=== PATIENT | male | born 2000 | race Caucasian/White ===

== ENCOUNTER 2018-01-05 16:36 | Inpatient (IN) | payer OTHER ==
[2018-01-05] MEDS ORDERED: IMMUNE GLOBULIN (HUMAN-IGG) 1 GM/10 ML VIAL IV ONE (16:58)
[2018-01-05] MEDS ORDERED: IMMUNE GLOBULIN (HUMAN-IGG) 20 GM in EMPTY BAG 1 BAG IV ONE (18:00)
[2018-01-05 18:49] VITALS: BMI 18.8
[2018-01-05] MEDS ORDERED: IMMUNE GLOBULIN (HUMAN-IGG) 10 GM in EMPTY BAG 1 BAG IV ONE (19:00)
--- NOTE | 2018-01-05 21:01 | P.HPIM ---
History of Present Illness H&P Date: 01/05/18 The patient is a 17-year-old young white male, in good health, recently seen in consult on 12/21/17. The patient had noted development of some blisters inside his mouth, as well as small areas of bruising type discoloration on his upper extremities and distal lower lower extremities. due to persistence and some progression of his symptoms, he came into the emergency room. Labs revealed the patient count of 2000. Other aspects of his CBC and chem panel were normal. It was therefore decided to admit the patient. The patient denied any prior history of blood related problems. There was no recent history of any signs or symptoms suggestive of infection. No history of any new medications or joint swelling. he was treated with IV steroids, IVIG and platet transfusion. Platelet counts increased to 57,00 And he was discharged. He was continued on prednisone in the outpatient setting. However counts were noted to have dropped to 13,000, and then 4000 on the day of this admission, when seen in the office. The patient was continuing on 60 mg of prednisone daily. It was therefore decided to admit him for platelet transfusions and IVIG. He has noted minor bruising on his upper extremities, as well as 2-3 small blood spots on his soft palate. Otherwise no significant bleeding has been noted. Review of Systems Constitutional: Denies chills, Denies fever Eyes: denies blurred vision, denies pain Ears: deny: decreased hearing, ear discharge, earache, tinnitus Ears, nose, mouth and throat: Denies headache, Denies sore throat Cardiovascular: Denies chest pain, Denies shortness of breath Respiratory: Denies cough Gastrointestinal: Denies abdominal pain, Denies diarrhea, Denies nausea, Denies vomiting Musculoskeletal: Denies myalgias Integumentary: Reports as per HPI (minimal purpura distal UE) Neurological: Denies numbness, Denies weakness Psychiatric: Denies anxiety, Denies depression Endocrine: Denies fatigue, Denies weight change Hematologic/Lymphatic: Reports as per HPI Past Medical History Past Medical History: No Reported History Additional Past Medical History / Comment(s): broken arm at age 1 yrs from jumping off of the bed History of Any Multi-Drug Resistant Organisms: None Reported Past Surgical History: No Surgical Hx Reported Additional Past Surgical History / Comment(s): [place] teeth extraction Past Anesthesia/Blood Transfusion Reactions: No Reported Reaction Smoking Status: Never smoker - Past Family History Mother Family Medical History: No Reported History Additional Family Medical History / Comment(s): Mother is healthy Father Family Medical History: No Reported History Additional Family Medical History / Comment(s): Father is healthy Medications and Allergies Home Medications Medication Instructions Recorded Confirmed Type predniSONE 60 mg PO DAILY 01/05/18 01/05/18 History Allergies Allergy/AdvReac Type Severity Reaction Status Date / Time No Known Allergies Allergy Verified 01/05/18 19:13 Physical Exam Vitals: Vital Signs Temp Pulse Resp BP Pulse Ox 01/05/18 17:29 98.1 F 88 15 133/85 99 Intake and Output 01/05/18 01/05/18 01/05/18 06:59 14:59 22:59 Other: Weight 66.5 kg Patient Weight 01/06/18 06:59 Weight 66.5 kg - Constitutional General appearance: no acute distress - EENT 2-3 small purpura soft palate Eyes: EOMI, PERRLA ENT: hearing grossly normal - Neck Neck: no lymphadenopathy Thyroid: bilateral: normal size - Respiratory Respiratory: bilateral: CTA - Cardiovascular Rhythm: regular Heart sounds: normal: S1, S2 - Gastrointestinal General gastrointestinal: no organomegaly, soft, no tenderness - Integumentary minimal purpura distal UE - Neurologic Neurologic: CNII-XII intact - Musculoskeletal Musculoskeletal: generalized weakness, strength equal bilaterally - Psychiatric Psychiatric: A&O x's 3, appropriate affect Results Labs: Labs done in office show normal Hgb and WBC, with plt of 4000 Thrombosis Risk Factor Assmnt - DVT/VTE Prophylaxis DVT/VTE Prophylaxis: Contraindicated - See note (plt count < [id number]) Assessment and Plan (1) Thrombocytopenia Narrative/Plan: The pt has a new diagnosis of ITP. He appears to be steroid refractory, with plt dropping to 4000, despite 60 mg/d of Prednisone. He is being admitted for platelet transfusion. Continue Prednisone. He will recieve additional IVIg Options for 2nd line treatment were discussed in detail, including splenectomy , Rituxan and TPA agonists. It has been decided to start Rituximab as an outpatient GINGER. Check CBC in Am. Can likely discharge once plt are > 10 Current Visit: No Status: Acute Code(s): D69.6 - THROMBOCYTOPENIA, UNSPECIFIED SNOMED Code(s): 594907478
[2018-01-06 07:17] LABS: Basophils # (A) 0.1 k/uL (0-0.2); Basophils % (A) 0 %; Eosinophils # (A) 0.1 k/uL (0-0.7); Eosinophils % (A) 1 %; HCT 44.9 % (39.0-53.0); HGB 14.5 gm/dL (13.0-17.5); Lymphocytes # (A) 1.6 k/uL (1.0-4.8); Lymphocytes % (A) 14 %; MCH 30.6 pg (25.0-35.0); MCHC 32.4 g/dL (31.0-37.0); MCV 94.4 fL (80.0-100.0); Monocytes # (A) 0.9 k/uL (0-1.0); Monocytes % (A) 7 %; Neutrophils # (A) 8.9 k/uL (1.3-7.7); Neutrophils % (A) 75 %; RBC 4.76 m/uL (4.30-5.90); RDW 12.3 % (11.5-15.5); WBC 11.8 k/uL (4.0-11.0)
[2018-01-06 08:36] LABS: Platelet Count 9 k/uL (150-450)
[2018-01-06] MEDS ORDERED: IMMUNE GLOBULIN 30 GM/300 ML IV ONE (11:13)
[2018-01-06] MEDS ORDERED: predniSONE 20 MG TAB PO SCH (11:15)
[2018-01-06] MEDS ORDERED: IMMUNE GLOBULIN (HUMAN-IGG) 10 GM in EMPTY BAG 1 BAG IV ONE (11:30)
[2018-01-06] MEDS ORDERED: IMMUNE GLOBULIN (HUMAN-IGG) 20 GM in EMPTY BAG 1 BAG IV ONE (11:30)
--- NOTE | 2018-01-06 16:27 | P.DS ---
Providers Date of admission: 01/05/18 16:54 Expected date of discharge: 01/06/18 Attending physician: Dean Yoon Primary care physician: Stated None - Discharge Diagnosis(es) (1) Thrombocytopenia Current Visit: No Status: Acute (2) Acute ITP Current Visit: Yes Status: Acute Hospital Course: The patient is a 17-year-old young white male, in good health, recently seen in consult on 12/21/17. The patient had noted development of some blisters inside his mouth, as well as small areas of bruising type discoloration on his upper extremities and distal lower lower extremities. due to persistence and some progression of his symptoms, he came into the emergency room. Labs revealed the patient count of 2000. Other aspects of his CBC and chem panel were normal. It was therefore decided to admit the patient. The patient denied any prior history of blood related problems. There was no recent history of any signs or symptoms suggestive of infection. No history of any new medications or joint swelling. he was treated with IV steroids, IVIG and platet transfusion. Platelet counts increased to 57,00 And he was discharged. Workup for underlying causes , including B12, folate, protein electrophoresis studies, HIV and rheumatoid factor was negative, except for a positive ALHAJI at 1:160 with a speckled pattern. This was felt to be nonspecific in the absence of any other symptoms. He was continued on prednisone in the outpatient setting. However counts were noted to have dropped to 13,000, and then 4000 on the day of this admission , when seen in the office. The patient was continuing on 60 mg of prednisone daily. It was therefore decided to admit him for platelet transfusions and IVIG. He has noted minor bruising on his upper extremities, as well as 2-3 small blood spots on his soft palate. Otherwise no significant bleeding has been noted. He was therefore admitted on 01/05/18. He received 1 unit of platelets, and also 0.5 g/kg grams of IVIG. Today, on 01/06/18. Counts are still 9. Therefore he received an additional 30 g of IVIG, and another unit of platelets. The patient appeared to be steroid refractory, and therefore second line options were discussed in detail with him and his mother. These included rituximab, thrombopoietin receptor agonist, and splenectomy. I recommended rituximab. The office did start the process of prior authorization for obtaining the medication. A bone marrow aspiration biopsy was also planned for next week. The patient's mother requested a transfer to the [facility] for a second opinion. They were contacted, and the case discussed with pediatric hematology. They decided to accept the patient.. The patient will this does be transferred as soon as a bed is available. Pertinent Studies: None Procedures: Platelet transfusions IVIG transfusions Patient Condition at Discharge: Fair Plan - Discharge Summary Discharge Rx Participant: Yes New Discharge Prescriptions: No Action predniSONE 60 mg PO DAILY Discharge Medication List predniSONE 60 mg PO DAILY 01/05/18 [History]
[2018-01-06 17:14] VITALS: BP 137/90
[2018-01-06 17:17] VITALS: PULSE 92; RESP 15; TEMP 98
== END 2018-01-06 19:10 | disposition still patient (30) | DRG 813 ==
LOC: 6PED 16:54
PROVIDERS: ADMIT Internal Medicine Hematology & Oncology; ATTEND Internal Medicine Hematology & Oncology
PROC: 30233R1 Transfusion of Nonautologous Platelets into Peripheral Vein, Percutaneous Approach (ICD-10-PCS; principal; 2018-01-05)
DX: D69.3 Immune thrombocytopenic purpura (principal)
CPT/HCPCS: 85025; 86850; 86900; 86901

== ENCOUNTER → 2018-05-19 | Outpatient (CLI) | payer OTHER ==
[2018-05-19 13:28] LABS: ALT 39 U/L (21-72); AST 33 U/L (17-59); Albumin 4.6 g/dL (3.5-5.0); Alkaline Phosphatase 38 U/L (38-126); Anion Gap 12 mmol/L; Blood Urea Nitrogen 9 mg/dL (9-20); Calcium 9.2 mg/dL (8.4-10.2); Carbon Dioxide 25 mmol/L (22-30); Chloride 104 mmol/L (98-107); Glucose 87 mg/dL (74-99); Potassium 4.3 mmol/L (3.5-5.1); Sodium 141 mmol/L (137-145); Total Bilirubin 0.7 mg/dL (0.2-1.3); Total Protein 8.7 g/dL (6.3-8.2)
[2018-05-19 13:33] LABS: Basophils % (A) 1 %; Eosinophils # (A) 0.1 k/uL (0-0.7); Eosinophils % (A) 5 %; HCT 39.2 % (39.0-53.0); HGB 13.3 gm/dL (13.0-17.5); Lymphocytes # (A) 0.9 k/uL (1.0-4.8); Lymphocytes % (A) 40 %; MCHC 33.9 g/dL (31.0-37.0); MCV 88.5 fL (80.0-100.0); Mean Platelet Volume 9.9; Monocytes # (A) 0.2 k/uL (0-1.0); Monocytes % (A) 10 %; Neutrophils # (A) 0.9 k/uL (1.3-7.7); Neutrophils % (A) 41 %; Poikilocytosis Slight; RBC 4.43 m/uL (4.30-5.90); RDW 13.6 % (11.5-15.5); WBC 2.1 k/uL (4.0-11.0)
[2018-05-19 14:01] LABS: Platelet Count 17 k/uL (150-450)
== END | disposition home or self-care (01) ==
LOC: LABWHC1 12:50
PROVIDERS: ATTEND Pediatrics
DX: D69.6 Thrombocytopenia, unspecified (principal); Z79.899 Other long term (current) drug therapy
CPT/HCPCS: 36415; 80053; 85025

== ENCOUNTER → 2018-06-07 | Outpatient (CLI) | payer OTHER ==
[2018-06-07 12:09] LABS: ALT 66 U/L (21-72); AST 42 U/L (17-59); Albumin 4.6 g/dL (3.5-5.0); Alkaline Phosphatase 39 U/L (38-126); Anion Gap 7 mmol/L; Blood Urea Nitrogen 10 mg/dL (9-20); Calcium 9.3 mg/dL (8.4-10.2); Carbon Dioxide 30 mmol/L (22-30); Chloride 104 mmol/L (98-107); Glucose 67 mg/dL (74-99); Potassium 4.5 mmol/L (3.5-5.1); Sodium 141 mmol/L (137-145); Total Bilirubin 0.4 mg/dL (0.2-1.3); Total Protein 7.9 g/dL (6.3-8.2)
== END | disposition home or self-care (01) ==
LOC: LABWHC1 11:31
PROVIDERS: ATTEND Pediatrics
DX: D69.6 Thrombocytopenia, unspecified (principal); Z79.899 Other long term (current) drug therapy
CPT/HCPCS: 36415; 80053

== ENCOUNTER → 2018-11-06 | Outpatient (CLI) | payer OTHER ==
[2018-11-06 11:34] LABS: Basophils # (A) 0.1 k/uL (0-0.2); Basophils % (A) 1 %; Eosinophils # (A) 0.2 k/uL (0-0.7); Eosinophils % (A) 4 %; HCT 46.5 % (39.0-53.0); HGB 15.7 gm/dL (13.0-17.5); Lymphocytes # (A) 1.4 k/uL (1.0-4.8); Lymphocytes % (A) 33 %; MCH 30.2 pg (25.0-35.0); MCHC 33.8 g/dL (31.0-37.0); MCV 89.5 fL (80.0-100.0); Mean Platelet Volume 14.2; Monocytes # (A) 0.4 k/uL (0-1.0); Monocytes % (A) 8 %; Neutrophils # (A) 2.3 k/uL (1.3-7.7); Neutrophils % (A) 52 %; RDW 12.5 % (11.5-15.5); WBC 4.4 k/uL (4.0-11.0)
[2018-11-06 11:48] LABS: Platelet Count 31 k/uL (150-450)
== END | disposition home or self-care (01) ==
LOC: LABWHC1 10:59
PROVIDERS: ATTEND Student in an Organized Health Care Education/Training Program
DX: D69.3 Immune thrombocytopenic purpura (principal)
CPT/HCPCS: 36415; 85025

== ENCOUNTER → 2025-03-06 | Outpatient (CLI) | payer OTHER ==
[2025-03-06 18:17] LABS: Chol/HDL Ratio 3.73 Ratio; LDL Cholesterol,Calculated 100.2 mg/dL (0.0-131.0)
== END | disposition home or self-care (01) ==
LOC: LABWHC1 14:11
PROVIDERS: ATTEND Internal Medicine
DX: Z13.228 Encounter for screening for other metabolic disorders (principal); Z91.89 Other specified personal risk factors, not elsewhere classified
CPT/HCPCS: 36415; 80061; 83036; 86480